=== PATIENT | male | born 1940 | race Caucasian/White ===

== ENCOUNTER 2016-03-22 15:38 | Emergency (ER) | payer MEDICARE, OTHER ==
[~2016-03-22] VITALS: Ht 185.4 cm; Wt 97.0 kg
[2016-03-22 16:15] VITALS: BP 129/74; PULSE 62; RESP 16; TEMP 99.3; O2SAT 95
[2016-03-22 17:45] VITALS: BP 153/83; PULSE 62; RESP 18; O2SAT 96
[2016-03-22] MEDS ORDERED: ALLO300T2 PO (17:54)
[2016-03-22] MEDS ORDERED: TAMS0.4C4 PO (17:54)
[2016-03-22] MEDS ORDERED: AMLO5TAB2 PO (17:54)
[2016-03-22] MEDS ORDERED: ZOCO80TA PO (17:54)
[2016-03-22] MEDS ORDERED: LISI10TA3 PO (17:54)
[2016-03-22] MEDS ORDERED: FINA5TAB2 PO (17:54)
[2016-03-22] MEDS ORDERED: METO25TA3 PO (17:54)
[2016-03-22] MEDS ORDERED: VITA400C2 PO (17:54)
[2016-03-22] MEDS ORDERED: ASPI325T PO (17:54)
[2016-03-22] MEDS ORDERED: OMEP40CA2 PO (17:54)
[2016-03-22] MEDS ORDERED: CITA40TA4 PO (17:54)
[2016-03-22] MEDS ORDERED: SODIUM CHLORIDE 0.9% FLUSH 5 ML FLUSH IVF PRN (18:30)
[2016-03-22] MEDS ORDERED: MORPHINE SULFATE 4 MG/ML INJ IV PUSH ONE (18:30)
[2016-03-22] MEDS ORDERED: SODIUM CHLOR 0.9% 1000 ML INJ 1,000 ML IV SCH (18:30)
[2016-03-22] MEDS ORDERED: ONDANSETRON HCL 4 MG/2 ML VIAL IVP ONE (18:30)
--- NOTE | 2016-03-22 18:37 | PD ---
HPI Chief Complaint: Flank/Kidney Pain Time Seen by Provider: 17:59 Travel History International Travel<30 days: No Contact w/Intl Traveler<30days: No Traveled to known affect area: No History of Present Illness HPI The patient is a 75-year-old male who presents emergency department for a one-week history of intermittent left flank pain. The patient complains of pain is located over the left flank and left upper quadrant for the last week. The pain is intermittent, occasionally sharp, occasionally dull, nonradiating, and not associated with any nausea, vomiting, or acute bowel changes. The patient does have a history of fecal incontinence for several years, states when he eats, he will have to have a bowel movement immediately. The patient denies any dysuria, frequency, or hematuria. The patient denies any chest pain, shortness breath, or acute cough. He does note a history of a dry nonproductive cough. The patient denies any history of kidney stones in the past and denies any known history of diverticulitis. The patient did have a colonoscopy approximately one year ago. 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, 4 vessel bypass) Cerebrovascular Accident: Yes (CVA) Gout: Yes Genitourinary: Yes (CKD) Hypertension: Yes Tetanus Vaccination: Unknown Influenza Vaccination: Yes Past Surgical History Coronary Artery Bypass Graft: Yes Social History Alcohol Use: Yes (1 beer w/ dinner) Tobacco Use: No Substance Use: Yes (Marijuana occ.) Allergies-Medications (Allergen,Severity, Reaction): Coded Allergies: No Known Allergies (Unverified , 03/22/16) Reported Meds & Prescriptions Reported Meds & Active Scripts Active Reported Allopurinol 300 Mg Tab 300 Mg PO DAILY Aspirin 325 Mg Tab 325 Mg PO DAILY Zocor (Simvastatin) 80 Mg Tab 80 Mg PO DAILY Tamsulosin (Tamsulosin HCl) 0.4 Mg Cap 0.4 Mg PO HS Lisinopril 10 Mg Tab 10 Mg PO DAILY Amlodipine (Amlodipine Besylate) 5 Mg Tab 5 Mg PO DAILY Citalopram (Citalopram Hydrobromide) 40 Mg Tab 40 Mg PO DAILY Metoprolol Tartrate 25 Mg Tab 25 Mg PO DAILY Finasteride 5 Mg Tab 5 Mg PO DAILY Do not crush. Omeprazole 40 Mg Cap 40 Mg PO DAILY Vitamin E 400 Unit Cap 400 Units PO DAILY Review of Systems Except as stated in HPI: all other systems reviewed are Neg General / Constitutional: No: Fever Cardiovascular: No: Chest Pain or Discomfort Respiratory: No: Shortness of Breath Gastrointestinal: No: Nausea, Vomiting, Diarrhea, Abdominal Pain, Changes in Bowel Habits Genitourinary: Positive: Flank Pain, No: Urgency, Frequency, Dysuria Musculoskeletal: No: Myalgias Skin: No Rash Physical Exam Narrative GENERAL: Awake, alert, pleasant 75-year-old male who appears his stated age is in no acute respiratory distress. SKIN: Warm and dry. No stigmata of shingles noted. HEAD: Atraumatic. Normocephalic. EYES: No injection or drainage. ENT: No nasal bleeding or discharge. Mucous membranes pink and moist. NECK: Trachea midline. No JVD. CARDIOVASCULAR: Regular rate and rhythm. No murmur appreciated. RESPIRATORY: No accessory muscle use. Clear to auscultation. Breath sounds equal bilaterally. GASTROINTESTINAL: Abdomen soft, minimal tenderness in the left flank, no rebound tenderness. Back: No CVA tenderness. MUSCULOSKELETAL: No obvious deformities. No clubbing. No cyanosis. No edema. NEUROLOGICAL: Awake and alert. Slightly asymmetric smile with right facial droop. The right hand does have some contractures and decreased mobility. PSYCHIATRIC: Appropriate mood and affect; insight and judgment normal. Data Data Last Documented VS Vital Signs Date Time Temp Pulse Resp B/P Pulse Ox O2 Delivery O2 Flow Rate FiO2 03/22/16 20:06 58 18 162/91 95 Room Air 03/22/16 16:15 99.3 Orders Complete Blood Count With Diff (03/22/16 18:30) Comprehensive Metabolic Panel (03/22/16 18:30) Lipase (03/22/16 18:30) Lactic Acid (03/22/16 18:30) Urinalysis - C+S If Indicated (03/22/16 18:30) Ct Abd/Pel W/O Iv Contrast (03/22/16 18:30) Iv Access Insert/Monitor (03/22/16 18:30) Ecg Monitoring (03/22/16 18:30) Oximetry (03/22/16 18:30) Morphine Inj (Morphine Inj) (03/22/16 18:30) Ondansetron Inj (Zofran Inj) (03/22/16 18:30) Sodium Chlor 0.9% 1000 Ml Inj (Ns 1000 M (03/22/16 18:30) Sodium Chloride 0.9% Flush (Ns Flush) (03/22/16 18:30) Troponin I (03/22/16 18:30) Creatine Kinase (Cpk) (03/22/16 18:30) Labs Laboratory Tests Test 03/22/16 03/22/16 18:47 19:20 White Blood Count 6.3 TH/MM3 Red Blood Count 5.09 MIL/MM3 Hemoglobin 14.6 GM/DL Hematocrit 44.6 % Mean Corpuscular Volume 87.6 FL Mean Corpuscular Hemoglobin 28.8 PG Mean Corpuscular Hemoglobin 32.9 % Concent Red Cell Distribution Width 13.4 % Platelet Count 212 TH/MM3 Mean Platelet Volume 7.3 FL Neutrophils (%) (Auto) 69.9 % Lymphocytes (%) (Auto) 17.6 % Monocytes (%) (Auto) 6.6 % Eosinophils (%) (Auto) 5.2 % Basophils (%) (Auto) 0.7 % Neutrophils # (Auto) 4.5 TH/MM3 Lymphocytes # (Auto) 1.1 TH/MM3 Monocytes # (Auto) 0.4 TH/MM3 Eosinophils # (Auto) 0.3 TH/MM3 Basophils # (Auto) 0.0 TH/MM3 CBC Comment DIFF FINAL Differential Comment Sodium Level 142 MEQ/L Potassium Level 4.1 MEQ/L Chloride Level 105 MEQ/L Carbon Dioxide Level 29.8 MEQ/L Anion Gap 7 MEQ/L Blood Urea Nitrogen 15 MG/DL Creatinine 1.20 MG/DL Estimat Glomerular Filtration 59 ML/MIN Rate Random Glucose 86 MG/DL Lactic Acid Level 0.5 mmol/L Calcium Level 8.5 MG/DL Total Bilirubin 0.8 MG/DL Aspartate Amino Transf 16 U/L (AST/SGOT) Alanine Aminotransferase 14 U/L (ALT/SGPT) Alkaline Phosphatase 67 U/L Total Creatine Kinase 143 U/L Troponin I LESS THAN 0.02 NG/ML Total Protein 7.4 GM/DL Albumin 3.8 GM/DL Lipase 210 U/L Urine Color YELLOW Urine Turbidity CLEAR Urine pH 5.5 Urine Specific [place] 1.017 Urine Protein NEG mg/dL Urine Glucose (UA) NEG mg/dL Urine Ketones NEG mg/dL Urine Occult Blood NEG Urine Nitrite NEG Urine Bilirubin NEG Urine Leukocyte Esterase NEG Urine RBC 0-2 /hpf Urine WBC 0-2 /hpf Urine Squamous Epithelial 0-5 /hpf Cells Urine Bacteria NONE /hpf Microscopic Urinalysis Comment CULT NOT INDICATED MDM Medical Decision Making Medical Screen Exam Complete: Yes Emergency Medical Condition: Yes Medical Record Reviewed: Yes Interpretation(s) Laboratory Tests Test 03/22/16 03/22/16 18:47 19:20 White Blood Count 6.3 TH/MM3 Red Blood Count 5.09 MIL/MM3 Hemoglobin 14.6 GM/DL Hematocrit 44.6 % Mean Corpuscular Volume 87.6 FL Mean Corpuscular Hemoglobin 28.8 PG Mean Corpuscular Hemoglobin 32.9 % Concent Red Cell Distribution Width 13.4 % Platelet Count 212 TH/MM3 Mean Platelet Volume 7.3 FL Neutrophils (%) (Auto) 69.9 % Lymphocytes (%) (Auto) 17.6 % Monocytes (%) (Auto) 6.6 % Eosinophils (%) (Auto) 5.2 % Basophils (%) (Auto) 0.7 % Neutrophils # (Auto) 4.5 TH/MM3 Lymphocytes # (Auto) 1.1 TH/MM3 Monocytes # (Auto) 0.4 TH/MM3 Eosinophils # (Auto) 0.3 TH/MM3 Basophils # (Auto) 0.0 TH/MM3 CBC Comment DIFF FINAL Differential Comment Sodium Level 142 MEQ/L Potassium Level 4.1 MEQ/L Chloride Level 105 MEQ/L Carbon Dioxide Level 29.8 MEQ/L Anion Gap 7 MEQ/L Blood Urea Nitrogen 15 MG/DL Creatinine 1.20 MG/DL Estimat Glomerular Filtration 59 ML/MIN Rate Random Glucose 86 MG/DL Lactic Acid Level 0.5 mmol/L Calcium Level 8.5 MG/DL Total Bilirubin 0.8 MG/DL Aspartate Amino Transf 16 U/L (AST/SGOT) Alanine Aminotransferase 14 U/L (ALT/SGPT) Alkaline Phosphatase 67 U/L Total Creatine Kinase 143 U/L Troponin I LESS THAN 0.02 NG/ML Total Protein 7.4 GM/DL Albumin 3.8 GM/DL Lipase 210 U/L Urine Color YELLOW Urine Turbidity CLEAR Urine pH 5.5 Urine Specific [place] 1.017 Urine Protein NEG mg/dL Urine Glucose (UA) NEG mg/dL Urine Ketones NEG mg/dL Urine Occult Blood NEG Urine Nitrite NEG Urine Bilirubin NEG Urine Leukocyte Esterase NEG Urine RBC 0-2 /hpf Urine WBC 0-2 /hpf Urine Squamous Epithelial 0-5 /hpf Cells Urine Bacteria NONE /hpf Microscopic Urinalysis Comment CULT NOT INDICATED CT the abdomen and pelvis reveals tiny nonobstructing stones seen in the kidneys bilaterally. There is also 1 mm stone seen in the proximal right ureter. Small gallstones. Very prominent fat and inguinal canal regions bilaterally likely representing potential hernias. The anterior left lateral aspect of the urinary bladder herniates into the left inguinal canal. Differential Diagnosis Differential diagnosis includes polynephritis, nephrolithiasis, diverticulitis, lower lobe pneumonia, splenomegaly, atypical pancreatitis, complicated urinary tract infection. Narrative Course IV was established, labs were drawn and sent, and the patient was placed on cardiac telemetry monitoring and continuous pulse ox imaging monitoring. CT of the abdomen and pelvis without IV contrast was ordered. UA was sent to lab. The patient was channel cementer morphine, Zofran, and IV fluids. CT the abdomen and pelvis reveals bilateral inguinal hernias with bladder herniation. UA is unremarkable. Laboratory evaluation is otherwise unremarkable. Lactic acid is normal. Patient is medically clear for outpatient follow-up with surgery. Diagnosis Primary Impression: Nephrolithiasis Additional Impressions: Flank pain Inguinal hernia Qualified Code: K40.21 - Bilateral recurrent inguinal hernia without obstruction or gangrene Referrals: Jeancarlos Palma MD as needed Patient Instructions: General Instructions, Narcotic given in the ED Additional Instructions: Medications as directed. Follow-up with surgery on an outpatient basis. Follow -up with your primary physician. Return if symptoms worsen or progress. Med/Other Pt SpecificInfo: Prescription(s) given Scripts Ondansetron Odt (Zofran Odt)4 Mg Tab4 Mg SL Q6HR PRN (Nausea/Vomiting) #7 TAB Ref 0 Prov:Jean Carlos Umana MD 03/22/16 Hydrocodone-Acetaminophen ([place])5-325 mg Tab1 Tab PO Q6H PRN (PAIN) #20 TAB Ref 0 Prov:Jean Carlos Umana MD 03/22/16 Disposition: 01 DISCHARGE HOME Condition: Stable Jean Carlos Umana MD Mar 22, 2016 18:37
[2016-03-22 18:50] VITALS: O2SAT 95
[2016-03-22 18:55] LABS: AUTOMATED NEUTROPHIL # 4.5 TH/MM3 (1.8-7.7); BASOPHIL % 0.7 % (0.0-2.0); EOSINOPHIL # 0.3 TH/MM3 (0-0.4); EOSINOPHIL % 5.2 % (0.0-4.0); HEMATOCRIT 44.6 % (39.0-51.0); HEMO FLAGS DIFF FINAL; LYMPH % 17.6 % (9.0-44.0); LYMPHOCYTE # 1.1 TH/MM3 (1.0-4.8); MEAN CELL VOLUME 87.6 FL (80.0-100.0); MEAN CORPUSCULAR HEMOGLOBIN 28.8 PG (27.0-34.0); MEAN CORPUSCULAR HGB CONC 32.9 % (32.0-36.0); MONO % 6.6 % (0.0-8.0); NEUT % 69.9 % (16.0-70.0); PLATELET COUNT 212 TH/MM3 (150-450); RED BLOOD COUNT 5.09 MIL/MM3 (4.50-5.90); RED CELL DISTRIBUTION WIDTH 13.4 % (11.6-17.2); WHITE BLOOD COUNT 6.3 TH/MM3 (4.0-11.0)
[2016-03-22 19:05] VITALS: BP 181/102; PULSE 60; RESP 18; O2SAT 95
[2016-03-22 19:07] LABS: CHLORIDE 105 MEQ/L (98-107); POTASSIUM 4.1 MEQ/L (3.5-5.1); SODIUM (NA) 142 MEQ/L (136-145)
[2016-03-22 19:11] LABS: ANION GAP 7 MEQ/L (5-15); BICARBONATE 29.8 MEQ/L (21.0-32.0)
[2016-03-22 19:12] LABS: BLOOD UREA NITROGEN 15 MG/DL (7-18)
[2016-03-22 19:14] LABS: ALT (GPT) 14 U/L (12-78); AST (GOT) 16 U/L (15-37)
[2016-03-22 19:15] LABS: GLOMERULAR FILTRATION RATE 59 ML/MIN (>89)
[2016-03-22 19:16] LABS: TOTAL BILIRUBIN ADULT 0.8 MG/DL (0.2-1.0)
[2016-03-22 19:17] LABS: ALKALINE PHOSPHATASE 67 U/L (45-117); CREATINE KINASE 143 U/L (39-308)
--- NOTE | 2016-03-22 19:25 | RADHPO ---
EXAM DATE/TIME: 03/22/2016 18:50 [facility] COMPARISON: No previous studies available for comparison. INDICATIONS : Left flank pain. ORAL CONTRAST: No oral contrast ingested. RADIATION DOSE: 25.60 CTDIvol (mGy) MEDICAL HISTORY : Cardiovascular disease. Hypertension. SURGICAL HISTORY : None. ENCOUNTER: Initial ACUITY: 1 day PAIN SCALE: 5/10 LOCATION: Left flank TECHNIQUE: Volumetric scanning of the abdomen and pelvis was performed. Using automated exposure control and adjustment of the mA and/or kV according to patient size, radiation dose was kept as low as reasonably achievable to obtain optimal diagnostic quality images. FINDINGS: The liver appears grossly normal. There are small layering calcifications seen within the gallbladder likely related to small gallstones. There is a calcified granuloma seen in the splee n. The pancreas and adrenal glands are normal. There are small 1 to 2 mm nonobstructing renal stones seen bilaterally. There is a 1 mm calcification seen in the proximal right ureter without dilatation of the collecting systems. The ureters are not dilated. Atherosclerotic calcifications are seen throughout the arterial system. The aorta measures up to 3 c m which is mildly aneurysmal. There is a possible mild hiatal hernia. The bowel appears otherwise unremarkable. The pelvic struct ures appear grossly intact. There is prominent fat within the inguinal canals bilaterally suggesting potential hernias. The anterior left lateral aspect of the bladder extends into the left inguinal c anal. There is degenerative change in the lumbar spine. CONCLUSION: 1. Tiny nonobstructing stones seen in the kidneys bilaterally. There is also a 1 mm stone seen in the proximal right ureter. 2. Small gallstones. 3. Very prominent fat in the inguinal canal regions bilaterally likely representing potential hernias . The anterior left lateral aspect of the urinary bladder herniates into the left inguinal canal. Bryson Kim MD on March 22, 2016 at 19:12 Board Certified Radiologist. This report was verified electronically.
[2016-03-22 19:26] LABS: BLOOD, URINE NEG (NEG); GLUCOSE,URINE NEG (NEG); KETONE, URINE NEG (NEG); NITRITE,URINE NEG (NEG); PH, URINE 5.5 (5.0-8.5)
[2016-03-22 19:35] LABS: COMMENT (UR) CULT NOT INDICATED; CULTURE IF INDICATED CULT NOT INDICATED; RBC, URINE 0-2 /hpf (0-3); SQUAMOUS EPITHELIAL CELL URINE 0-5 /hpf (0-5); URINE COLOR YELLOW (YELLW/STRAW); WBC, URINE 0-2 /hpf (0-5)
[2016-03-22 20:06] VITALS: BP 162/91; PULSE 58; RESP 18; O2SAT 95
[2016-03-22] MEDS ORDERED: ZOFR4TAB3 SL (20:21)
[2016-03-22] MEDS ORDERED: NORC5TAB PO (20:21)
[2016-03-22 21:30] VITALS: BP 170/102
== END 2016-03-22 21:37 | disposition home or self-care (01) ==
LOC: PHED 15:38
DX: N20.0 Calculus of kidney (principal); R10.12 Left upper quadrant pain; K40.21 Bilateral inguinal hernia, without obstruction or gangrene, recurrent; R05 Cough; I12.9 Hypertensive chronic kidney disease with stage 1 through stage 4 chronic kidney disease, or unspecified chronic kidney disease; N18.9 Chronic kidney disease, unspecified; Z79.82 Long term (current) use of aspirin; Z95.1 Presence of aortocoronary bypass graft; Z87.19 Personal history of other diseases of the digestive system; Z86.79 Personal history of other diseases of the circulatory system; Z86.73 Personal history of transient ischemic attack (TIA), and cerebral infarction without residual deficits; Z87.39 Personal history of other diseases of the musculoskeletal system and connective tissue
CPT/HCPCS: 74176; 80053; 81001; 82550; 83605; 83690; 84484; 85025; 96361; 96374; 96375; 99284; J2270; J2405; J7030